=== PATIENT | female | born 1930 ===

== ENCOUNTER → 2016-10-23 | Outpatient (CLI) | payer MEDICARE ==
[~2016-10-23] MED LIST: ACET325T9 PO; ALPR0.25 PO; ASPI-482 PO; ATEN-56 PO; CARB1TAB2 PO; CLOT15CR4 TP; GLUC1TAB44 PO; IOHEXOL 180 MG/ML 10 ML VIAL. ONE; MECL25TA3 PO; MULT-681 PO; RAMI10CA34 PO; SIMV40TA PO; methylPREDNISolone ACETATE 40 MG/ML VIAL. ONE; methylPREDNISolone ACETATE 80 MG/ML VIAL. ONE
--- NOTE | 2016-10-23 17:48 | PAIN ---
DATE OF SERVICE: 10/23/2016 INITIAL CONSULTATION FOR PAIN CLINIC CHIEF COMPLAINT: Neck and left upper extremity. HISTORY OF PRESENT ILLNESS: This is an 86-year-old female who presents with history of pain in the base of the neck and left shoulder and arm for about 9 months, but been going on for much longer than that, much worse in the last 9 months. The patient reports increasing with activity and using her left upper extremity also some pain in the base of the neck and side of the neck on the left side radiating to the posterior and anterior aspect of the clavicle and scapula. The patient reports it is worse with raising her arm overhead on the left side, repetitive motions or trying to use her walker with her left arm with putting weight on that shoulder, arm is painful. The patient reports it awakens her from sleep occasionally, but when she lays on her left arm, most night she sleeps well, does not affect her bowel or bladder control and does not affect her ability to walk but the walker is causing some pain in the left arm when she is using the walker itself. The patient reports no loss of motor function, but significant fatigability with pain and discomfort in the left shoulder and arm started with constant, throbbing and radiating to the left hand occasionally, mostly in the upper arm anteriorly on the biceps. The patient did have an MRI scan of the cervical spine showing anterolisthesis of C6 on C7 with loss of disk height with small central posterior disk protrusion extending slightly cephalad from the disk level of C6-C7, also degenerative changes involving the C5-C6 level as well as the C2-C3, C3-C4, C4-C5. PAST MEDICAL HISTORY: Significant for type 2 diabetes, hypertension, coronary artery disease, hiatal hernias, dizziness, arthritis. PREVIOUS SURGERY: Include coronary artery bypass in 2000, tonsillectomy in 193, uterine surgery in 1947, appendectomy in 194, gallbladder in 1953, total knee replaced in 1990 and cataract extraction in 1997. CURRENT MEDICATIONS: Include meclizine, clotrimazole, Zocor, alprazolam, Altace, daily baby aspirin, Tylenol, simvastatin, glucosamine, carbidopa, Tenormin . ALLERGIES: The patient has no known drug allergies. FAMILY HISTORY: Significant for no major medical problems or conditions that she is aware of. SOCIAL HISTORY: The patient does not smoke, does not drink alcohol, is , lives in the [facility] locally. REVIEW OF SYSTEMS: The patient's review of systems is positive for those items mentioned in history of present illness. All systems reviewed and otherwise negative. It is complete, full and well documented on the patient's chart. PHYSICAL EXAMINATION: VITAL SIGNS: Today, blood pressure 139/51, pulse is 78, respirations 18, temperature 97.5 degrees Fahrenheit. Height is 4 feet 11, weight 146 pounds. GENERAL: The patient is awake, alert, oriented, appropriate, very pleasant demeanor. HEENT: Head shows normocephalic, atraumatic. Extraocular movements are intact and symmetrical. Oral cavity, mucous membranes are moist and pink. Dentition is intact. NECK: Shows anterior throat supple without palpable lymphadenopathy noted. Swallow reflex is symmetrical. CHEST: Shows normal on inspection. Breath sounds are clear to auscultation bilaterally. HEART: Shows S1 and S2 clear. No murmurs auscultated. ABDOMEN: Soft, obese, nontender, nondistended. No palpable organomegaly. No rebound or guarding demonstrated. BACK: Shows spine grossly midline, normal-appearing cervical lordotic curvature, thoracic kyphotic curvature is mildly exaggerated, had some mild flattening of lumbar lordotic curvature. Cervical paraspinous muscle shows symmetrical on inspection with palpation shows significant tenderness, more on the left than the right, in the mid and low, lateral to posterior paraspinous musculature radiating to the superior medial and lateral trapezius with some tenderness over the trapezius as well superiorly, right side is nontender, very firm musculature; however, on the right inferior aspect of the cervical paraspinous muscles and superior medial trapezius. The patient shows good rotational motion with some tenderness reported with rotation to the left and with extension and also forward flexion, but not to the right. Upper extremity showed deep tendon reflexes are 1+ in the biceps and triceps tendons are equal. Motor exam is strong with tab builder strength rated at 5/5, bicep and tricep flexion about 4 on a scale of 5, but symmetrical. Peripheral pulses are 2+ in the posterior arm, mostly in the radial distribution bilaterally. No peripheral edema is noted. Upper extremities are warm and dry to touch, equal in color and appearance. Shoulder shrug strong and intact without loss of strength on resistance. The patient reports some pain in the base of the neck on the left side only with resistance, but no loss of strength. This is true with abduction at 90 degrees of the shoulders, but she is able to do bilaterally and without difficulty and with some pain with resistance, but no loss of strength. IMPRESSION: 1. This is an 86-year-old female with at least 9 month history of pain in the base of the neck, left upper extremity and shoulder as noted. 2. MRI scan as noted. 3. History of hypertension. 4. Type 2 diabetes. 5. Arthritis. PLAN: Options were discussed with the patient and her daughters including conservative medical management, physical therapy, interventional techniques and she would like to pursue interventional techniques. We discussed a cervical epidural steroid injection using description as well as anatomic models to describe the procedure. Risks were then discussed including, but not limited to bleeding, infection, possibility of epidural hematoma, subsequent neurologic compromise, dural puncture, headaches, spinal cord and/or nerve damage, side effects of steroid medication and poor results regarding pain control. The patient understands and wishes to proceed. The patient will return to clinic in approximately 2 weeks for followup, was counseled on return appointment, activity level and side effects to be aware of. DIAGNOSIS: Cervical radiculopathy with cervical degenerative disk disease. PROCEDURE: Cervical epidural steroid injection using C-arm fluoroscopic guidance under sterile prep and drape using local anesthetic. MEDICATIONS INJECTED: A total of 120 mg Depo-Medrol plus 5 mL of preservative free normal saline and 2 mL of Isovue for contrast. CONDITION AT DISCHARGE: Stable. The patient tolerated procedure well, had no complications. REY MIMS MD DR: DICK/tobias JOB#: [id number] / [id number] BREE Tsai MD
== END | disposition home or self-care (01) ==
LOC: PNCL 10:29
PROVIDERS: ATTEND Anesthesiology
DX: M50.10 Cervical disc disorder with radiculopathy, unspecified cervical region (principal); E11.9 Type 2 diabetes mellitus without complications; I10 Essential (primary) hypertension; M19.90 Unspecified osteoarthritis, unspecified site
CPT/HCPCS: 62321; J1030; J1040